=== PATIENT | female | born 1980 ===

== ENCOUNTER 2024-01-12 11:00 | Day surgery (SDC) | payer OTHER, SELFPAY ==
--- NOTE | 2024-01-11 15:27 | COLE_ITS ---
Date of service: 01/12/24 Time of Service: 12:53 Colonoscopy Report Date of procedure: 01/12/24 Pre-op diagnosis general: mother had large polyps requiring resection x2 Post-op diagnosis procedure note: other (diverticula ) Surgeon: Irais Sibley Anesthesia Type: General:No Airway Estimated blood loss (mL): 0 Pathology: other Complications: None Disposition: same day Prep: Miralax/Dulcolax Retraction Time: 8 Procedure Description: After informed consent was obtained, explaining risks of the procedure, including but not limits to: bleeding, infections, complications of anesthesia, perforations (which may require antibiotics and /or surgery and stay in the hospital), and abdominal pain/cramping. The patient was taken to the procedure room and placed in a left decubitous position. Monitors were applied and a time out was done. The patients name, date of , procedure, allergies to medications and metal in their body was reviewed. The patient was then sedated. Once sedated and comfortable a rectal exam was done. External exam was normal. Internal exam revealed a normal sphincter tone and no palpable masses. The previously lubricated Olympus scope was then introduced (see RN notes for scope number) and retrofelexed. No internal hemorrhoids were identified. The scope was then advanced to the cecum without difficulty. The TI and appendiceal orifice were identified. The scope was then slowly retracted over 8 minutes back into the rectum. Polyps: no Diverticula: pt had very few small mouthed diverticula in the sigmoid colon. There were no signs of active bleeding or infection. The mucosa is pink and healthy w/ a normal vascular pattern. The scope was removed, and the patient was woken up and taken back to Same day surgery in stable condition. The patient tolerated the procedure well and there were no immediate complications. Follow up: The patient should follow up in 5 years, unless they develop changes in bowel habits or other new gastrointestinal complaints. [place] Bowel Prep [place] Bowel Prep Right Colon: 3 Left Colon: 3 Transverse Colon: 3 Total Score: 9
--- NOTE | 2024-01-11 15:28 | PDOC.DSDIS_ITS ---
Date of service: 01/12/24 Time of Service: 13:59 Discharge Plan Disposition Patient Disposition: Home Condition: Good Discharge Details Reason For Visit: colon cancer screening Attending Provider: Irais Sibley Primary Care Provider: Kingston Kilgore Home Meds and New Rx's Prescriptions: Discontinued bisacodyl [Dulcolax (bisacodyl)] 5 mg tablet,delayed release (DR/EC) 5 mg PO ONCE Qty: 4 0RF Rx Instructions: Take per colonoscopy instructions provided by ordering providers office polyethylene glycol 3350 17 gram/dose powder 17 g PO ONCE Qty: 238 0RF Rx Instructions: Take per colonoscopy instructions provided by ordering providers office Discharge Instructions Additional Instructions: DSU Colonoscopy Post- Op Instructions Instructions for Everyone who is given Anesthesia: For your safety, please do the following for the next twenty-four (24) hours: *Do Not operate a motor vehicle (car, truck, motorcycle, etc.) *Do Not drink alcoholic beverages or use any recreational drugs for the first 24 hours or while taking pain medications. The medications in your body may have a reaction that can be dangerous. *Do Not make any important decisions or sign any important papers. Findings: Few small diverticula. Make sure you are moving your bowels on a regular basis and not straining to go to the bathroom. If you find you are having problems with constipation or straining, then we recommend you start a fiber product daily such as Metamucil. Follow up: Repeat colonoscopy in 5 years time. 1. No lifting over 20 pounds or strenuous activity for the first 24 hours after your procedure. After 24 hours there are no restrictions on your activity but you may feel fatigued for a few days. 2. After you arrive home you may have a light meal and return to your normal diet as you can tolerate it without feeling sick to your stomach. 3. You may have a bloated, gaseous feeling in your belly (abdomen) after a colonoscopy. Passing gas and belching will help. Walking or lying down on your left side with your knees flexed may relieve the discomfort. Call the office at [phone] (Office) or [phone] (Hospital) right away if you notice any of the following: a.Vomiting of blood or ?coffee ground stools?. b.Rectal bleeding 1Tbsp, blood clots or continuous bleeding. c.Severe belly (abdominal) pain. d.A hard distended belly (abdomen) and an inability to pass gas. 4. Please don?t expect to have a normal BM (bowel movement) for 2-3 days after your procedure. 5. If there are questions regarding the findings of your procedure, please contact your doctor 6. If you are unable to contact your doctor with a problem, contact the hospital at [phone]. 7. Continue all your regular medications unless directed otherwise. I understand the above instructions and have no questions. Signature of Patient or Adult Escort Name of Responsible Adult Escort Signature of Nurse Date/Time Stand Alone Forms: Anesthesia Discharge Kilo Valencia (DSU) Activity:: see above Diet:: see above Discharge Orders Discharge Orders: Discharge Order (Routine); Ordered 01/12/24 Ordered By: Irais Sibley DS: Diagnosis Discharge Diagnosis (1) High blood pressure: (2) High cholesterol: (3) Thyroid disorder: (4) History of diarrhea: Status: Acute Asessment and Plan: The patient is seen and examined after their colonoscopy.? The patient has been able to pass gas.? They are not having abdominal pain.? They have been able to tolerate liquids and a snack.? They do not have any nausea or vomiting.? They are not having any chest pain or shortness of breath.??? They are not having any rectal bleeding. Their vital signs have been stable-see nursing notes. We discussed findings during their colonoscopy, and any biopsies that were done/polyps that were removed. The patient will be sent a letter with any biopsy results, and when to repeat the colonoscopy.-see discharge instructions. Patient was given explicit instructions to follow-up regarding colonoscopy-refer to discharge instructions.? We reviewed resumption of medications. Patient verbalized understanding and discharged in stable and satisfactory condition- See nursing notes. (5) Family history of colon cancer in mother: Status: Acute
--- NOTE | 2024-01-11 17:23 | W.ANESPRE ---
General Info Date of Service Date Performed: 01/12/24 Height: 5 ft 2 in Weight: 73.028 kg Body Mass Index (BMI): 29.4 Surgical Procedure: Operation Date: 01/12/24 12:20 Proposed Procedure Side Surgeon p Colonoscopy Irais Sibley DO Meds Allergies and Home Medications Allergies Allergy/AdvReac Type Severity Reaction Status Date / Time Latex, Natural Rubber Allergy Mild Topical Verified 01/12/24 11:54 Irritation Penicillins Allergy Unknown Anaphylaxis Verified 01/12/24 11:54 shrimp Allergy Unknown Itchy Verified 01/12/24 11:54 throat codeine AdvReac Other (See Verified 01/12/24 11:54 Comment) NSAIDS (Non-Steroidal AdvReac Unknown Verified 01/12/24 11:54 Anti-Inflamma MSG Allergy Unknown Skin Rash Uncoded 01/12/24 11:54 Current Visit Medications: Current Medications Generic Name Dose Route Start Last Admin Trade Name Freq PRN Reason Stop Dose Admin Hyoscyamine Sulfate 0.125 mg 01/12/24 03:21 Hyoscyamine 0.125 Mg Sl/Oral/Chew SL 02/11/24 03:20 DIRECTED PRN IV Miscellaneous Supplies 1 each 01/12/24 06:00 Iv Access IV 02/10/24 23:59 DIRECTED CASEY Ondansetron HCl 4 mg 01/12/24 03:21 Ondansetron 4 Mg/2 Ml Vial IVP 02/11/24 03:20 Q4H PRN PRN Nausea / Vomiting Sodium Chloride 0 ml 01/12/24 06:00 Normal Saline Flush 10 Ml Syr IV 02/10/24 23:59 PRN PRN Sodium Chloride 0 ml 01/12/24 06:00 Normal Saline 10 Ml Vial IJ 02/10/24 23:59 DIRECTED PRN Sterile Water 0 ml 01/12/24 06:00 Water,Injection,Sterile 10 Ml Vial IJ 02/10/24 23:59 DIRECTED PRN PFSH Active Problems Active Problems: Problem Status Onset Code Family history of colon cancer in mother Acute Z80.0 History of diarrhea Acute Z87.898 Medical History Medical History (Updated 01/11/24 @ 15:29 by Irais Sibley DO) Thyroid disorder High blood pressure High cholesterol Tobacco Smoking/Tobacco Use Status: Never Alcohol Alcohol Intake: never Substance Use Substance use: Never Substance use type: does not use Vital Signs and Lab Results Vital Signs Most Recent Vital Signs in EMR: Temp Pulse Resp BP Pulse Ox 36.3 C L 72 16 167/95 H 99 01/12/24 11:41 01/12/24 11:41 01/12/24 11:41 01/12/24 11:41 01/12/24 11:41 Lab Results Blood Type / Crossmatch: No Data to Display Complete Blood Count: No Data to Display Complete Metabolic Panel: No Data to Display Liver Function Panel: No Data to Display Coagulation Panel: No Data to Display Cardiac Panel: No Data to Display Arterial Blood Gas: No Data to Display Venous Blood Gas: No Data to Display Pancreas Panel: No Data to Display Thyroid Panel: No Data to Display Infectious Disease: No Data to Display Blood Cultures: No Data to Display Toxicology Panel: No Data to Display Panel: No Data to Display Anesthesia Assessment and Plan Anesthesia History Personal History: No History of General Anesthesia Family History: No Family History of Anesthesia Complications Exercise Tolerance Exercise Tolerance: Metabolic Equivalents>4 Cardiac & Pulmonary Exam Cardiac Exam: Normal S1/S2 Heart Sounds Pulmonary Exam: Clear Bilateral Breath Sounds Implantable Cardiac Device Does patient have a Pacemaker or an ICD?: No Airway Exam Known Difficult Airway: No Mallampati Class: 3 Mouth Opening: Narrow (< 3cm) Thyromental Distance: Less than 3 cm Neck Range of Motion: Full ROM Neck Circumference: Normal Teeth Condition: Normal Dentition ASA Classification ASA Score: ASA 2 Emergency Case?: No NPO Status NPO Status: NPO Clears >2 hours, Solids >8 hours Status Status: Negative HCG Anesthesia Plan Resuscitation Status: Full Code Anesthesia Technique: General Anesthesia Airway Planned: Natural Airway Monitors Used: Standard Monitors Preoperative Comments:: 43 yo female for colo. Sig PMHx: HTN (no meds), thyroid ds (FNA many years ago for small nodule), never smoker,
[2024-01-12 11:41] VITALS: BP 167/95; PULSE 72; RESP 16; TEMP 36.3; O2SAT 99
[2024-01-12] MEDS: Normal Saline Flush 10 ML SYR IV (11:57)
[2024-01-12 12:00] VITALS: BMI 29.4
[2024-01-12 12:52] VITALS: BP 119/55; PULSE 76; RESP 16; TEMP 36.3; O2SAT 98
[2024-01-12 13:18] VITALS: BP 129/67; PULSE 64; RESP 16; TEMP 36.3; O2SAT 98
--- NOTE | 2024-01-12 13:37 | W.ANESPOSTOP ---
Postoperative Evaluation Date, Time and Location Date Performed: 01/12/24 Time Performed: 13:19 Patient Location: Day Surgery Unit Vital Signs Most Recent Imported Vital Signs: Most Recent Vital Signs Temp Pulse Resp BP Pulse Ox 36.3 C L 64 16 129/67 98 01/12/24 13:18 01/12/24 13:18 01/12/24 13:18 01/12/24 13:18 01/12/24 13:18 Pain Score Most Recent Pain Score: Most Recent Pain Score Pain Level 0 01/12/24 13:18 Assessment Mental Status: Awake (Alert & Oriented to Patient Baseline) Airway and Respiratory Function: Patent airway with normal (patient baseline) respiratory exam Cardiovascular Function: Hemodynamically Stable Hydration Status: Adequately Hydrated Nausea & Vomiting: No Nausea or Vomiting Pain: Pt. Denies Any Pain Peripheral Nerve Block: Patient did not receive a nerve block
== END 2024-01-12 14:12 | disposition home or self-care (01) ==
LOC: SUR 11:01
PROVIDERS: PCP Naturopath; Visit Provider Surgery
PROC: 0DJD8ZZ Inspection of Lower Intestinal Tract, Via Natural or Artificial Opening Endoscopic (ICD-10-PCS; CPT 45378; principal; 2024-01-12 12:15)
DX: I10 Essential (primary) hypertension (principal); Z80.0 Family history of malignant neoplasm of digestive organs; Z12.11 Encounter for screening for malignant neoplasm of colon; K57.30 Diverticulosis of large intestine without perforation or abscess without bleeding
CPT/HCPCS: 45378; 81025; J2704